=== PATIENT | male | born 1985 | race Caucasian/White ===

== ENCOUNTER 2018-04-17 21:11 | Emergency (ER) | payer BC ==
[~2018-04-17] VITALS: Ht 177.8 cm; Wt 94.9 kg
[2018-04-17 21:13] VITALS: BP 126/64
--- NOTE | 2018-04-17 21:15 | NUR ---
PT AMBULATED TO THE LOBBY, VSS
--- NOTE | 2018-04-17 22:25 | NUR ---
PT AMBULATED TO BED #5
--- NOTE | 2018-04-17 22:39 | NUR ---
32M BIB SELF CC: RASH TO L ABD TO UPPER BACK. STATES ITCHINESS. SMALL RED CLUSTERS NOTED. ALLERGIES PCN. PSH: GALLGLADDER SURGERY 11/2017. DENIES PAIN. AOX4. ABLE TO VERBALIZE NEEDS. EVEN UNLABORED BREATHING. BED IN LOWEST POSITION. WILL CONTINUE TO MONITOR,
--- NOTE | 2018-04-17 22:53 | NUR ---
Dr. Will evaluating patient at bedside.
[2018-04-17 23:23] VITALS: BP 126/64
--- NOTE | 2018-04-17 23:24 | NUR ---
Patient discharged with v/s stable. Written and verbal after care instructions given and explained. Patient alert, oriented and verbalized understanding of instructions. Ambulatory with steady gait. All questions addressed prior to discharge. ID band removed. Patient advised to follow up with PMD. Rx of ZOVIRAX 800MG, TRAMADOL HYDROCHLORIDE 50MG, MOTRIN 800MG given. Patient educated on indication of medication including possible reaction and side effects. Opportunity to ask questions provided and answered.
== END 2018-04-17 23:24 | disposition home or self-care (01) ==
LOC: MED 21:11
DX: B02.9 Zoster without complications (principal); Z88.0 Allergy status to penicillin
CPT/HCPCS: 99283; J7030